=== PATIENT | male | born 1960 | race Asian ===

== ENCOUNTER 2023-01-20 04:17 | Day surgery (SDC) | payer OTHER ==
[2023-01-13 16:50] VITALS: BMI 28.5
[~2023-01-20 04:17] MED LIST: ACETAMINOPHEN 500 MG TABLET (FP) PO PRN
[2023-01-20 11:12] VITALS: RESP 20
[2023-01-20] MEDS ORDERED: LIDOCAINE HCL 1% PRESERVATIVE FREE - 30ML VIAL IJ ONE (11:55)
[2023-01-20] MEDS ORDERED: IOHEXOL 180 MG/1 ML ML IJ ONE (11:57)
[2023-01-20] MEDS ORDERED: DEXAMETHASONE SOD PHOSPHATE 10 MG/1 ML VIAL IVPUSH ONE (11:58)
[2023-01-20 13:28] VITALS: TEMP 97.7
[2023-01-20 13:30] VITALS: BP 130/80; PULSE 68
[2023-01-20] MEDS ORDERED: ACETAMINOPHEN 500 MG TABLET (FP) PO PRN (15:53)
== END 2023-01-20 12:30 | disposition home or self-care (01) ==
LOC: JASU-SURG 04:17
PROVIDERS: ATTEND Pain Medicine Pain Medicine
PROC: 3E0R3BZ Introduction of Anesthetic Agent into Spinal Canal, Percutaneous Approach (ICD-10-PCS; 2023-01-20)
PROC: 3E0R33Z Introduction of Anti-inflammatory into Spinal Canal, Percutaneous Approach (ICD-10-PCS; principal; 2023-01-20 15:30)
DX: M54.16 Radiculopathy, lumbar region (principal); M48.061 Spinal stenosis, lumbar region without neurogenic claudication
CPT/HCPCS: 76000-TC-FY; J1100

== ENCOUNTER 2023-04-03 04:14 | Day surgery (SDC) | payer OTHER ==
[2023-04-02 16:30] VITALS: BMI 25.7
[~2023-04-03 04:14] MED LIST changes: -ACETAMINOPHEN 500 MG TABLET (FP) PO PRN; +DEXAMETHASONE SOD PHOSPHATE 10 MG/1 ML VIAL IM ONE; +IOHEXOL 180 MG/1 ML ML IJ ONE; +LIDOCAINE HCL 1% PRESERVATIVE FREE - 30ML VIAL IJ ONE
[2023-04-03] MEDS ORDERED: DEXAMETHASONE SOD PHOSPHATE 10 MG/1 ML VIAL ONE (07:31)
[2023-04-03] MEDS ORDERED: LIDOCAINE HCL/PF 1% SDV 5ML VIAL ONE (07:31)
[2023-04-03] MEDS ORDERED: ACETAMINOPHEN 500 MG TABLET (FP) PO PRN (08:31)
[2023-04-03] MEDS ORDERED: LIDOCAINE HCL 1% PRESERVATIVE FREE - 30ML VIAL IJ ONE ×2 (13:21)
[2023-04-03] MEDS ORDERED: DEXAMETHASONE SOD PHOSPHATE 10 MG/1 ML VIAL IM ONE ×2 (13:21)
[2023-04-03] MEDS ORDERED: IOHEXOL 180 MG/1 ML ML IJ ONE (13:21)
[2023-04-03 13:45] VITALS: BP 138/75; PULSE 67; RESP 10; TEMP 98
== END 2023-04-03 13:56 | disposition home or self-care (01) ==
LOC: JASU-SURG 04:14
PROVIDERS: ATTEND Pain Medicine Pain Medicine
PROC: 3E0R3BZ Introduction of Anesthetic Agent into Spinal Canal, Percutaneous Approach (ICD-10-PCS; 2023-04-03)
PROC: 3E0R33Z Introduction of Anti-inflammatory into Spinal Canal, Percutaneous Approach (ICD-10-PCS; principal; 2023-04-03 13:45)
DX: M48.061 Spinal stenosis, lumbar region without neurogenic claudication (principal); M54.16 Radiculopathy, lumbar region
CPT/HCPCS: 76000-TC-FY; J1100